=== PATIENT | male | born 1945 | race Caucasian/White ===

== ENCOUNTER 2020-07-21 21:51 | Emergency (ER) | payer MEDICARE, OTHER ==
[~2020-07-21] VITALS: Ht 170.2 cm; Wt 86.2 kg
[~2020-07-21 21:51] MED LIST: ASPI81TA31 PO; ATOR20TA PO; ESOM40CA PO; LISI10TA29 PO; METO25TA3 PO; OMEG1CAP55 PO; TICA90TA PO
--- NOTE | 2020-07-21 22:05 | NUR ---
Dr. Wiley at bedside for MSE.
[2020-07-21] MEDS ORDERED: TETRACAINE HCL 0.5% OPHT DROP 2 ML BOTTLE ONE (22:12)
[2020-07-21] MEDS ORDERED: FLUORESCEIN SODIUM 1 MG STRIP ONE (22:12)
[2020-07-21] MEDS ORDERED: ERYT30GE8 TP (22:24)
[2020-07-21 22:28] VITALS: BP 143/70
--- NOTE | 2020-07-21 22:28 | NUR ---
Patient discharged to home in stable condition. Written and verbal after care instructions given. Patient verbalizes understanding of instructions. Stressed follow up or return to ER for worsening s/s. Patient out of ER with steady gait, no acute signs of distress, VSS, all belongings taken.
== END 2020-07-21 22:28 | disposition home or self-care (01) ==
LOC: ER 21:55
DX: H11.89 Other specified disorders of conjunctiva (principal); F17.210 Nicotine dependence, cigarettes, uncomplicated; I10 Essential (primary) hypertension; Z95.5 Presence of coronary angioplasty implant and graft; K21.9 Gastro-esophageal reflux disease without esophagitis; E78.5 Hyperlipidemia, unspecified; Z98.49 Cataract extraction status, unspecified eye; Z83.3 Family history of diabetes mellitus; Z82.49 Family history of ischemic heart disease and other diseases of the circulatory system; Z79.82 Long term (current) use of aspirin; Z79.899 Other long term (current) drug therapy; Z79.02 Long term (current) use of antithrombotics/antiplatelets
CPT/HCPCS: A4663